=== PATIENT | male | born 1940 | race Caucasian/White ===

== ENCOUNTER → 2016-03-18 | Outpatient (CLI) | payer MEDICARE ==
[~2016-03-18] MED LIST: APIX5TAB PO; ASCO500C PO; AUGM500T7 PO; CALC500T42 PO; LOSA50TA PO; MULT-135 PO; NIFE30TA8 PO; SAW160TA PO; TAMS0.4C4 PO; TAMS5CAP PO; VITACAP7 PO; [UNRECOGNIZED DRUG - CODE] PO; [UNRECOGNIZED DRUG - OTHER] PO
[2016-03-18 10:31] LABS: AUTOMATED NEUTROPHIL # 4.5 TH/MM3 (1.8-7.7); BASOPHIL % 0.5 % (0.0-2.0); EOSINOPHIL # 0.1 TH/MM3 (0-0.4); EOSINOPHIL % 1.4 % (0.0-4.0); HEMATOCRIT 43.7 % (39.0-51.0); HEMO FLAGS DIFF FINAL; LYMPH % 22.8 % (9.0-44.0); LYMPHOCYTE # 1.4 TH/MM3 (1.0-4.8); MEAN CELL VOLUME 93.6 FL (80.0-100.0); MEAN CORPUSCULAR HEMOGLOBIN 30.8 PG (27.0-34.0); MEAN CORPUSCULAR HGB CONC 32.9 % (32.0-36.0); MONO % 4.2 % (0.0-8.0); NEUT % 71.1 % (16.0-70.0); PLATELET COUNT 205 TH/MM3 (150-450); RED BLOOD COUNT 4.67 MIL/MM3 (4.50-5.90); RED CELL DISTRIBUTION WIDTH 13.9 % (11.6-17.2); WHITE BLOOD COUNT 6.3 TH/MM3 (4.0-11.0)
[2016-03-18 12:49] LABS: BACTERIA, URINE MOD /hpf; BLOOD, URINE MOD (NEG); GLUCOSE,URINE NEG (NEG); KETONE, URINE NEG (NEG); MUCUS URINE FEW /lpf (OCC); NITRITE,URINE NEG (NEG); PH, URINE 5.5 (5.0-8.5); TRANSITIONAL EPI CELLS, URINE 1 /hpf; URINE COLOR YELLOW (YELLW/STRAW)
[2016-03-18 12:50] LABS: ANION GAP 5 MEQ/L (5-15); AST (GOT) 17 U/L (15-37); BICARBONATE 27.8 MEQ/L (21.0-32.0); BLOOD UREA NITROGEN 8 MG/DL (7-18); CHLORIDE 108 MEQ/L (98-107); GLOMERULAR FILTRATION RATE 75 ML/MIN (>89); GLUCOSE,FASTING 117 MG/DL (74-99); POTASSIUM 4.2 MEQ/L (3.5-5.1); SODIUM (NA) 141 MEQ/L (136-145)
[2016-03-18 12:53] LABS: ALKALINE PHOSPHATASE 75 U/L (45-117); ALT (GPT) 21 U/L (12-78); HDL CHOLESTEROL 60.3 MG/DL (40.0-60.0); LDL CHOLESTEROL 87 MG/DL (0-99); TOTAL BILIRUBIN ADULT 0.8 MG/DL (0.2-1.0)
== END ==
LOC: OLAB 10:08
PROVIDERS: ATTEND Family Medicine
DX: I48.91 Unspecified atrial fibrillation (principal); E78.5 Hyperlipidemia, unspecified; I10 Essential (primary) hypertension
CPT/HCPCS: 36415; 80053; 80061; 81001; 85025

== ENCOUNTER 2016-04-09 16:47 | Inpatient (IN) | payer MEDICARE, OTHER ==
[~2016-04-09] VITALS: Ht 182.9 cm; Wt 116.2 kg
[2016-04-09 16:47] VITALS: BP 129/58; PULSE 52; RESP 16; TEMP 98.5; O2SAT 99
[~2016-04-09 16:47] MED LIST changes: -TAMS0.4C4 PO
--- NOTE | 2016-04-09 16:52 | PD ---
HPI Chief Complaint: syncope Time Seen by Provider: 16:51 Travel History International Travel<30 days: No Contact w/Intl Traveler<30days: No Traveled to known affect area: No History of Present Illness HPI 75-year-old male brought to the emergency room by EMS from a same day surgery unit after urological procedure done. Patient was in the recovery unit after the surgery and after anesthesia. His was sitting next to him. Patient was awake and talking and asked for a glass of water after which she became unresponsive. His noticed him to slumped over and called for help. As per her his color turned white. The nurse arrive and check for pulse and for 30 seconds unable to feel the pulse. As per the nursing report they did start CPR and called 911. Patient started to wake up and pulse returned. By the time EMS arrived patient was awake, responsive and not complaining of any chest pain or any other symptoms. His said that his symptoms occurred at around 4-4:15 PM. Patient continues to be awake and no other complaints. On the monitor his heart rate fluctuates between high 30s to low 50s. Blood pressure was 196 systolic. Patient takes blood pressure medication and has been taking all his medications like is supposed to. He does not recall the event. Patient has a net c developer in male clinic in [place] as well as here. He has had 3 cardiac ablations done. Patient does not have a pacemaker. [facility] Past Medical History Narrative Medical List of his past medical, social and family history was reviewed from the nursing note. Blood Disorders: No Heart Rhythm Problems: Yes (a-fib) Cancer: Yes (SKIN CANCER (FACE/NECK)) Cardiac Catheterization: Yes Cardiovascular Problems: Yes (HX OF ATRIAL FIBRILLATION WITH ABLATION X 3, ATRIAL FLUTTER) Congestive Heart Failure: No Diabetes: No Diminished Hearing: No Endocrine: No Gastrointestinal Disorders: Yes Genitourinary: No Hepatitis: Yes (HEPATITIS TYPE UNKNOWN 1962) Hiatal Hernia: Yes Hypertension: Yes Immune Disorder: No Musculoskeletal: Yes (ARTHRITIS BOTH KNEES; LEFT CARPAL TUNNEL SYNDROME ) Neurologic: Yes (BILATERAL FEET NEUROPATHY ) Psychiatric: No Reproductive: No Respiratory: No Thyroid Disease: No Ulcer: No Past Surgical History Abdominal Surgery: Yes (APPY 1955) AICD: No Appendectomy: Yes Body Medical Devices: NONE Cardiac Surgery: Yes (HEART CATH, ABLATION X 3,) Ear Surgery: No Endocrine Surgery: No Eye Surgery: No Genitourinary Surgery: No Gynecologic Surgery: No Joint Replacement: No Oral Surgery: No Pacemaker: No Thoracic Surgery: No Other Surgery: Yes (straightening right hammer toe, carpal nathan left toe) Social History Alcohol Use: Yes (6-8 BEERS A DAY) Tobacco Use: No (quit 77) Substance Use: No Allergies-Medications (Allergen,Severity, Reaction): Coded Allergies: Bactrim (Verified Allergy, Severe, SPLOTCHY SKIN, 04/14/16) Enalapril (Verified Allergy, Mild, Cough, 04/14/16) *MDRO Multi-Drug Resistant Organism (Verified Adverse Reaction, Unknown, ) MRSA (wound) - 07/2014 MRSA PCR Screens NEGATIVE - 01/27/16 & 01/30/16 CLEARED PER INFECTION CONTROL Comments List of his allergies reviewed from the nursing note. Reported Meds & Prescriptions Reported Meds & Active Scripts Active Nifedipine ER 24 HR (Nifedipine) 30 Mg Tab 30 Mg PO DAILY Reported Augmentin (Amoxicillin-Clavulanate) 500-125 mg Tab 500 Mg PO BID Losartan (Losartan Potassium) 50 Mg Tab 50 Mg PO DAILY Flomax (Tamsulosin HCl) 0.4 Mg Cap 0.4 Mg PO HS Saw [place] (Saw [place] ([place])) 160 Mg Tab 320 Mg PO DAILY Vitamin C (Ascorbic Acid) 500 Mg Cap 500 Mg PO DAILY Multi Vitamin (Multiple Vitamin) 1 Tab Tab 1 Tab PO DAILY Eliquis (Apixaban) 5 Mg Tab 5 Mg PO BID Calcium 500 Mg Tab 400 Mg PO DAILY B Complex (B-Complex Vitamins) 1 Cap 1 Cap PO DAILY [Fish Oil,Flax,Borage] 800 Mg PO DAILY Narrative Medication List of his home medications reviewed from the nursing note. Review of Systems Except as stated in HPI: all other systems reviewed are Neg Physical Exam Narrative GENERAL: Awake, alert, moderate distress SKIN: Warm and dry. HEAD: Atraumatic. Normocephalic. EYES: Pupils equal and round. No scleral icterus. No injection or drainage. ENT: No nasal bleeding or discharge. Mucous membranes pink and moist. NECK: Trachea midline. No JVD. CARDIOVASCULAR: Regular rate and rhythm. No murmur appreciated. RESPIRATORY: No accessory muscle use. Clear to auscultation. Breath sounds equal bilaterally. GASTROINTESTINAL: Abdomen soft, non-tender, nondistended. Hepatic and splenic margins not palpable. MUSCULOSKELETAL: No obvious deformities. No clubbing. No cyanosis. No edema. NEUROLOGICAL: Awake and alert. No obvious cranial nerve deficits. Motor grossly within normal limits. Normal speech. PSYCHIATRIC: Appropriate mood and affect; insight and judgment normal. Data Data Last Documented VS Orders Electrocardiogram (04/09/16 17:00) Basic Metabolic Panel (Bmp) (04/09/16 17:12) Ckmb (Isoenzyme) Profile (04/09/16 17:12) Complete Blood Count With Diff (04/09/16 17:12) Magnesium (Mg) (04/09/16 17:12) Prothrombin Time / Inr (Pt) (04/09/16 17:12) Act Partial Throm Time (Ptt) (04/09/16 17:12) Troponin I (04/09/16 17:12) Chest, Single Ap (04/09/16 17:12) Ecg Monitoring (04/09/16 17:12) Bilateral Bp Monitoring (04/09/16 17:12) Iv Access Insert/Monitor (04/09/16 17:12) Oximetry (04/09/16 17:12) Oxygen Administration (04/09/16 17:12) Sodium Chloride 0.9% Flush (Ns Flush) (04/09/16 17:15) Sodium Chlorid 0.9% 500 Ml Inj (Ns 500 M (04/09/16 17:15) ^ Consent (04/09/16 17:46) Admit Order (Ed Use Only) (04/09/16 18:20) Labs MDM Medical Decision Making Medical Screen Exam Complete: Yes Emergency Medical Condition: Yes Medical Record Reviewed: Yes Interpretation(s) Twelve-lead EKG was reviewed by me. Normal sinus rhythm, bradycardia, normal axis, right bundle branch block, nonspecific ST-T wave changes. Heart rate of 56 bpm. Differential Diagnosis Symptomatic bradycardia, electrolyte abnormalities, post anesthesia complication Narrative Course 5:23 PM I tried talking to patient's net c developer Dr. Martinez. However he was out of town and Dr. Reyes who was covering for him called back. He wanted the patient to be admitted to hospitalist and said that his net c developer will consult on him tomorrow. He did not have anything further to add. Patient is getting blood work done. I have put him on pacer pads just in case. His heart rate keeps fluctuating and has gone as low as 39 bpm. He is not on any medications that could have this effect on the heart rate as far as I know. I' m wondering if it has to do with the anesthesia. Patient has had multiple cardiac ablations in the past and could be from that. He will require admission. 6:05 PM was down here to see the patient. He looked at the 12-lead EKGs and recommends a pacemaker for this patient. He wants the patient to be admitted to the hospitalist. CBC report is back and within normal limit. Awaiting for the chemistry. Critical Care Narrative Aggregate critical care time was 30 minutes. Time to perform other separately billable procedures was not included in the critical care time. My time did not include minutes spent treating any other patients simultaneously or on activities that did not directly contribute to the patient's treatment. The services I provided to this patient were to treat and/or prevent clinically significant deterioration that could result in: Symptomatic bradycardia, closer cardiac monitoring I provided critical care services requiring my management, as noted below: Chart data review, documentation time, medication orders and management, vital sign assessments/reviewing monitor data, ordering and reviewing lab tests, ordering and interpreting/reviewing x-rays and diagnostic studies, care of the patient and discussion of the patient with the admitting physicians. Procedures EKG Prior to Arrival: No Physician Communication Physician Communication Dr. Reyes, Dr. Serrano Diagnosis Primary Impression: Syncope Qualified Code: R55 - Syncope, unspecified syncope type Additional Impression: Symptomatic bradycardia Admitting Information Admitting Physician Requests: Herbert Ontiveros MD Apr 09, 2016 16:52 [facility] Medical Decision Making Medical Screen Exam Complete: Yes Emergency Medical Condition: Yes Medical Record Reviewed: Yes Interpretation(s) Twelve-lead EKG was reviewed by me. Normal sinus rhythm, bradycardia, normal axis, right bundle branch block, nonspecific ST-T wave changes. Heart rate of 56 bpm. Differential Diagnosis Symptomatic bradycardia, electrolyte abnormalities, post anesthesia complication Narrative Course 5:23 PM I tried talking to patient's net c developer Dr. Martinez. However he was out of town and Dr. Reyes who was covering for him to call back. He wanted the patient to be admitted to hospitalist and said that his net c developer will consult on him tomorrow. He did not have anything further to add. Patient is getting blood work done. I have put him on pacer pads. His heart rate keeps fluctuating and has gone as low as 39 bpm. He is not on any medications that could have this effect on the heart rate as far as I know. I'm wondering if it has to do with the anesthesia. Patient has had multiple ablations and could be from that. He will require admission. 6:05 PM was down here to see the patient. He looked at the 12-lead EKGs and recommends a pacemaker for this patient. He wants the patient to be admitted to the hospitalist. CBC report is back and within normal limit. Awaiting for the chemistry. Critical Care Narrative Aggregate critical care time was 30 minutes. Time to perform other separately billable procedures was not included in the critical care time. My time did not include minutes spent treating any other patients simultaneously or on activities that did not directly contribute to the patient's treatment. The services I provided to this patient were to treat and/or prevent clinically significant deterioration that could result in: Symptomatic bradycardia, closer cardiac monitoring I provided critical care services requiring my management, as noted below: Chart data review, documentation time, medication orders and management, vital sign assessments/reviewing monitor data, ordering and reviewing lab tests, ordering and interpreting/reviewing x-rays and diagnostic studies, care of the patient and discussion of the patient with the admitting physicians. Procedures EKG Prior to Arrival: No Physician Communication Physician Communication Dr. Reyes, Dr. Serrano Diagnosis Primary Impression: Syncope Qualified Code: R55 - Syncope, unspecified syncope type Additional Impression: Symptomatic bradycardia Admitting Information Admitting Physician Requests: Herbert Ontiveros MD Apr 09, 2016 16:52
[2016-04-09] MEDS ORDERED: SODIUM CHLORID 0.9% 500 ML INJ 500 ML IV ONE (17:15)
[2016-04-09] MEDS ORDERED: SODIUM CHLORIDE 0.9% FLUSH 5 ML FLUSH IVF PRN (17:15)
[2016-04-09 18:01] LABS: AUTOMATED NEUTROPHIL # 5.2 TH/MM3 (1.8-7.7); BASOPHIL % 0.4 % (0.0-2.0); EOSINOPHIL % 0.5 % (0.0-4.0); HEMATOCRIT 41.7 % (39.0-51.0); HEMO FLAGS DIFF FINAL; LYMPH % 17.1 % (9.0-44.0); LYMPHOCYTE # 1.2 TH/MM3 (1.0-4.8); MEAN CELL VOLUME 94.2 FL (80.0-100.0); MEAN CORPUSCULAR HEMOGLOBIN 31.7 PG (27.0-34.0); MEAN CORPUSCULAR HGB CONC 33.6 % (32.0-36.0); MONO % 7.3 % (0.0-8.0); NEUT % 74.7 % (16.0-70.0); PLATELET COUNT 168 TH/MM3 (150-450); RED BLOOD COUNT 4.43 MIL/MM3 (4.50-5.90); RED CELL DISTRIBUTION WIDTH 14.5 % (11.6-17.2); WHITE BLOOD COUNT 6.9 TH/MM3 (4.0-11.0)
--- NOTE | 2016-04-09 18:03 | RADRPT ---
EXAM DATE/TIME: 04/09/2016 17:29 [facility] COMPARISON: CHEST SINGLE AP, February 01, 2016, 15:54. INDICATIONS : Patient had prostate surgery this afternoon and passed out while in recovery. MEDICAL HISTORY : Hypertension. Hepatitis. Peripheral neuropathy. SURGICAL HISTORY : Appendectomy. Bilateral hallux amputation, laminectomy and bone spur ENCOUNTER: Initial ACUITY: 1 day PAIN SCORE: 0/10 LOCATION: chest FINDINGS: A single view of the chest demonstrates the lungs to be symmetrically aerated without evidence of mas s, infiltrate or effusion. No evidence pneumothorax. The cardiomediastinal contours are unremarkabl e. Osseous structures are intact. CONCLUSION: The lungs are clear. Beto Zambrano MD on April 09, 2016 at 18:01 Board Certified Radiologist. This report was verified electronically.
--- NOTE | 2016-04-09 18:12 | MB ---
cc: ЮЛИЯ ALFARO DATE OF CONSULTATION: 04/09/2016. HISTORY OF PRESENT ILLNESS: Mr. Zapata is a 75-year-old white male who is a patient of Dr. Martinez with a history of atrial flutter and fibrillation with multiple ablations. He underwent urologic procedure today. Afterwards he had an episode of severe bradycardia and became unresponsive. He was severely bradycardic. The patient was brought to the emergency room. His heart rate was intermittently in the 30s. He has not had any chest pain or shortness of breath. He has no recollection of this event. PAST MEDICAL HISTORY: His past medical history is positive for: 1. Atrial fibrillation. 2. Atrial flutter. 3. Ablation of flutter in 2007. 4. Ablation of fibrillation in 2009 and 2015 at [place]. 5. History of coronary artery disease. 6. Hypertension. 7. Dyslipidemia. 8. Hyperglycemia. 9. Peripheral neuropathy. 10. Osteoarthritis. 11. Erectile dysfunction. 12. Hiatal hernia. 13. Cardiac catheterization in 2007 showed ejection fraction of 60%, mild proximal left anterior descending disease. 14. History of toe amputation. 15. Laminectomy. 16. Appendectomy. 17. Bilateral knee arthroscopies. 18. Cholecystectomy. MEDICATIONS: 1. Eliquis. The patient has been off Eliquis for the last week for the urologic procedure. 2. Losartan. 4. Vitamin B. 5. Calcium. 6. Glucosamine. 7. Saw [place]. 8. A multivitamin. ALLERGIES: 1. BACTRIM. 2. ENALAPRIL. SOCIAL HISTORY: The patient drinks beer daily. He does not smoke. FAMILY HISTORY: Family history is negative for heart disease. REVIEW OF SYSTEMS: The review of systems is otherwise negative. PHYSICAL EXAMINATION: VITAL SIGNS: Blood pressure 130/80, pulse 60. HEAD, EYES, EARS, NOSE, THROAT: Negative. NECK: 2+ carotid upstrokes, no bruits. LUNGS: Clear. HEART: Regular rate and rhythm with no murmurs, rubs or gallops. ABDOMEN: Abdomen soft. No bruits. EXTREMITIES: Without edema. 2+ distal pulses. NEUROLOGIC: Grossly nonfocal. EKGS: EKG was reviewed and showed sinus rhythm, first-degree AV block, right bundle-branch block. Telemetry shows intermediate episodes of severe sinus bradycardia consistent with sick sinus syndrome. DIAGNOSIS: 1. Syncope. 2. Sick sinus syndrome with severe symptomatic bradycardia. 3. Paroxysmal atrial fibrillation / flutter, status post ablation. 4. Mild nonobstructive coronary artery disease. 5. Hypertension. 6. Dyslipidemia. DISPOSITION: Mr. Zapata was found to have evidence of sick sinus syndrome and severe symptomatic bradycardia. He will undergo the placement of a dual-chamber permanent pacemaker tomorrow. He and his understand the risks and benefits and they wish to proceed. MD NEERU Eli/AC /5:44 PM /5:56 PM MTDD
[2016-04-09 18:13] LABS: APTT (PATIENT) 26.3 SEC (24.3-30.1); PROTHROMBIN TIME - PATIENT 10.8 SEC (9.8-11.6)
[2016-04-09 18:22] LABS: ANION GAP 8 MEQ/L (5-15); BICARBONATE 27.9 MEQ/L (21.0-32.0); BLOOD UREA NITROGEN 6 MG/DL (7-18); CHLORIDE 105 MEQ/L (98-107); GLOMERULAR FILTRATION RATE 94 ML/MIN (>89); POTASSIUM 3.7 MEQ/L (3.5-5.1); SODIUM (NA) 141 MEQ/L (136-145)
[2016-04-09 18:30] VITALS: O2SAT 100
[2016-04-09 18:30] LABS: CREATINE KINASE 46 U/L (39-308)
[2016-04-09] MEDS ORDERED: SODIUM CHLORIDE 0.9% FLUSH 5 ML FLUSH FLUSH PRN (18:30)
[2016-04-09] MEDS ORDERED: ONDANSETRON HCL 4 MG/2 ML VIAL IVP PRN (18:30)
[2016-04-09] MEDS ORDERED: ACETAMINOPHEN 325 MG TAB PO PRN (18:30)
[2016-04-09] MEDS ORDERED: NALOXONE HCL 0.4 MG/ML AMP IV PRN (18:30)
--- NOTE | 2016-04-09 18:36 | HHI.HP ---
HPI Service [facility] Primary Care Physician Raghav Courtney M.D. Admission Diagnosis syncope, symptomatic bradycardia Diagnoses: Chief Complaint: syncope Travel History International Travel<30 Days: No Contact w/Intl Traveler <30 Da: No Traveled to Known Affected Are: No History of Present Illness This is a 75-year-old male with significant past medical history of peripheral neuropathy I status post I&D of left foot abscess, hypertension, hyperlipidemia. History of A. fib and a flutter with multiple ablations. According to the patient, he developed some problems with nocturia and was evaluated by urologist. Today he was at the [facility] after having undergone a Urolift procedure. While he was in recovery, patient was awake and talking to . He was having a sip of water when he suddenly he felt flushed and lightheaded, he became unresponsive. His noticed that he slumped over and call for help. When nursing staff arrived, patient was noted with a pulse rate of 30. Per ER report, CPR was initiated and 911 was called. Patient did wake up and pulse returned. By the time EMS arrived, patient was awake and responsive. He did not complain of any pain, no palpitations, shortness of breath. Blood pressure was 196 systolic. Indicated that he did take his blood pressure medications during the morning. Patient follows up with Dr. Juan lindquist as well as painter helper spray at [facility]. Prior to having procedure, patient had been in his usual state of health. He denies any recent fever, chills. He has been having wound care therapy at Dr. Wakefield' s office to a left foot wound that is healing well. In the emergency room, patient was evaluated. He was found hemodynamically stable, heart rate was fluctuating as low as 39. Cardiology was consulted, patient was seen by Dr. Serrano who plans to do a pacemaker tomorrow. Laboratory workup is essentially unremarkable. Patient is now awake alert oriented 3. He has no complaints. Patient has had a recent UTI, has had a chronic indwelling catheter since January 2016 for urinary retention. Is currently on antibiotics. Denies any fever or chills. Catheter was changed today. Patient is on Eliquis which he stopped taking for procedure. Patient is admitted for further evaluation and treatment. Review of Systems Constitutional: COMPLAINS OF: Dizziness, DENIES: Diaphoretic episodes, Fatigue , Fever, Weight gain, Weight loss, Chills, Change in appetite, Night Sweats Endocrine: DENIES: Heat/cold intolerance, Polydipsia, Polyuria, Polyphagia Eyes: DENIES: Blurred vision, Diplopia, Eye inflammation, Eye pain, Vision loss , Photosensitivity, Double Vision Ears, nose, mouth, throat: DENIES: Tinnitus, Hearing loss, Vertigo, Nasal discharge, Oral lesions, Throat pain, Hoarseness, Ear Pain, Running Nose, Epistaxis, Sinus Pain, Toothache, Odynophagia Respiratory: DENIES: Apneas, Cough, Snoring, Wheezing, Hemoptysis, Sputum production, Shortness of breath Cardiovascular: COMPLAINS OF: Syncope, DENIES: Chest pain, Palpitations, Dyspnea on Exertion, PND, Lower Extremity Edema, Orthopnea, Claudication Gastrointestinal: DENIES: Abdominal pain, Black stools, Bloody stools, Constipation, Diarrhea, Nausea, Vomiting, Difficulty Swallowing, Anorexia Genitourinary: DENIES: Sexual dysfunction, Urinary frequency, Urinary incontinence, Urgency, Hematuria, Dysuria, Nocturia, Penile Discharge, Testicular Pain, Testicular Swelling Musculoskeletal: DENIES: Joint pain, Muscle aches, Stiffness, Joint Swelling, Back pain, Neck pain Integumentary: DENIES: Abnormal pigmentation, Nail changes, Pruritus, Rash Hematologic/lymphatic: DENIES: Bruising, Lymphadenopathy Immunologic/allergic: DENIES: Eczema, Urticaria Neurologic: DENIES: Abnormal gait, Headache, Localized weakness, Paresthesias, Seizures, Speech Problems, Tremor, Poor Balance Psychiatric: DENIES: Anxiety, Confusion, Mood changes, Depression, Hallucinations, Agitation, Suicidal Ideation, Homicidal Ideation, Delusions Past Family Social History Past Medical History Peripheral neuropathy, affecting both lower extremities Atrial flutter/fibrillation Hyperlipidemia Hypertension Snoring hiatal hernia Appendicitis Urinary infection Mumps Kidney stones Osteoarthritis , back pain Hepatitis A Excessive alcohol recent admit 2015 for sepsis and left foot infection. Urinary retention, had a Petersen catheter inserted in January 2016 which is still hasn't place, was changed today 04/09/2016 Past Surgical History Bilateral toe amputation 1 and 2 on the left, 1 and 2 on the right L4-L5 laminectomy Left heel spur Bilateral hammertoe laminectomy, appendectomy Cardiac ablation x3 I/D left foot abscess Jan 26, 2016 Reported Medications Reported Meds & Active Scripts Active Nifedipine ER 24 HR (Nifedipine) 30 Mg Tab 30 Mg PO DAILY Reported Augmentin (Amoxicillin-Clavulanate) 500-125 mg Tab 500 Mg PO BID Losartan (Losartan Potassium) 50 Mg Tab 50 Mg PO DAILY Flomax (Tamsulosin HCl) 0.4 Mg Cap 0.4 Mg PO HS Saw Nelson (Saw Nelson (Serenoa Repens)) 160 Mg Tab 320 Mg PO DAILY Vitamin C (Ascorbic Acid) 500 Mg Cap 500 Mg PO DAILY Multi Vitamin (Multiple Vitamin) 1 Tab Tab 1 Tab PO DAILY Gugulipid (Guggulipid) 500 Mg Cap 1,000 Mg PO BID Eliquis (Apixaban) 5 Mg Tab 5 Mg PO BID Calcium 500 Mg Tab 400 Mg PO DAILY B Complex (B-Complex Vitamins) 1 Cap 1 Cap PO DAILY [Fish Oil,Flax,Borage] 800 Mg PO DAILY Allergies: Coded Allergies: Bactrim (Verified Allergy, Severe, SPLOTCHY SKIN, 04/07/16) Enalapril (Verified Allergy, Mild, Cough, 04/07/16) *MDRO Multi-Drug Resistant Organism (Verified Adverse Reaction, Unknown, ) 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 MRSA PCR Screen NEGATIVE 01/27/16 & 01/30/16 Cleared per Infection Control Active Ordered Medications Inpatient Medications Acetaminophen (Tylenol) 650 mg Q4H PRN PO TEMP > 100.4; Start 04/09/16 at 18:30 ; Status UNV Heparin Sodium (Porcine) (Heparin Inj) 5,000 units Q12H SQ ; Start 04/09/16 at 18:30; Status UNV IV Flush (NS Flush) 2 ml BID FLUSH ; Start 04/09/16 at 21:00; Status UNV IV Flush 2 ml 2 ml UNSCH PRN IVF FLUSH AFTER USING IV ACCESS; Start 04/09/16 at 17:15; Stop 04/09/16 at 18:32; Status DC Naloxone HCl (Narcan Inj) 0.4 mg UNSCH PRN IV SEE LABEL COMMENTS; Start at 18:30; Status UNV Ondansetron HCl (Zofran Inj) 4 mg Q6H PRN IVP NAUSEA OR VOMITING; Start at 18:30; Status UNV Sodium Chloride (NS 500 ml Inj) 500 ml @ 500 mls/hr ONCE ONCE IV Last administered on 04/09/16t 18:24; Start 04/09/16 at 17:15; Stop 04/09/16 at 18:14 ; Status DC Family History Reviewed but noncontributory Social History Former smoker, drinks 6-8 beers a day, no illicit drug use. Lives with Physical Exam Vital Signs Vital Signs Date Time Temp Pulse Resp B/P Pulse Ox O2 Delivery O2 Flow Rate FiO2 04/09/16 18:30 100 Nasal Cannula 2.00 04/09/16 16:47 98.5 52 16 129/58 99 Physical Exam GENERAL: This is a well-nourished, well-developed patient, in no apparent distress. SKIN: No rashes, ecchymoses or lesions. Cool and dry. HEAD: Atraumatic. Normocephalic. No temporal or scalp tenderness. EYES: Pupils equal round and reactive. Extraocular motions intact. No scleral icterus. No injection or drainage. ENT: Nose without bleeding, purulent drainage or septal hematoma. Throat without erythema, tonsillar hypertrophy or exudate. Uvula midline. Airway patent. NECK: Trachea midline. No JVD or lymphadenopathy. Supple, nontender, no meningeal signs. CARDIOVASCULAR: Regular rate and rhythm without murmurs, gallops, or rubs. RESPIRATORY: Clear to auscultation. Breath sounds equal bilaterally. No wheezes , rales, or rhonchi. GASTROINTESTINAL: Abdomen soft, non-tender, nondistended. No hepato-splenomegaly , or palpable masses. No guarding. MUSCULOSKELETAL: Status post bilateral toe amputations, 1 and 2 on the left, 1 and 2 on the right. Has a dressing to the left foot that is dry and intact. Pedal pulses +1 bilaterally. NEUROLOGICAL: Awake, alert oriented 3. Grossly normal. Laboratory Laboratory Tests Test 04/09/16 17:15 White Blood Count 6.9 Red Blood Count 4.43 Hemoglobin 14.0 Hematocrit 41.7 Mean Corpuscular Volume 94.2 Mean Corpuscular Hemoglobin 31.7 Mean Corpuscular Hemoglobin 33.6 Concent Red Cell Distribution Width 14.5 Platelet Count 168 Mean Platelet Volume 8.0 Neutrophils (%) (Auto) 74.7 Lymphocytes (%) (Auto) 17.1 Monocytes (%) (Auto) 7.3 Eosinophils (%) (Auto) 0.5 Basophils (%) (Auto) 0.4 Neutrophils # (Auto) 5.2 Lymphocytes # (Auto) 1.2 Monocytes # (Auto) 0.5 Eosinophils # (Auto) 0.0 Basophils # (Auto) 0.0 CBC Comment DIFF FINAL Differential Comment Prothrombin Time 10.8 Prothromb Time International 1.0 Ratio Activated Partial 26.3 Thromboplast Time Sodium Level 141 Potassium Level 3.7 Chloride Level 105 Carbon Dioxide Level 27.9 Anion Gap 8 Blood Urea Nitrogen 6 Creatinine 0.80 Estimat Glomerular Filtration 94 Rate Random Glucose 148 Calcium Level 8.2 Magnesium Level 2.0 Total Creatine Kinase 46 Troponin I LESS THAN 0.02 Result Diagram: 04/09/16171404/09/161714 Imaging Last Impressions Chest X-Ray 04/09/161711 Signed Impressions: Service Date/Time: March 17:29 - CONCLUSION: The lungs are clear. Beto Zambrano MD Assessment and Plan Problem List: (1) Syncope (2) Symptomatic bradycardia (3) Atrial fibrillation and flutter (4) Hx of prior ablation treatment (5) Neuropathy (6) HTN (hypertension) (7) Chronic ulcer of left foot Plan: Recent incision and drainage (8) HX AMPUTATION TOES RIGHT AND LEFT FOOT (9) Chronic indwelling Petersen catheter (10) UTI (urinary tract infection) (11) Urinary retention Assessment and Plan Admit to Dr. Cordova 75-year-old male with history of atrial flutter, A. fib with multiple ablations. Patient admitted after having symptomatic bradycardia with subsequent syncopal episode after undergoing urological procedure. Sick sinus syndrome with symptomatic bradycardia and syncope Continuous cardiac telemetry External pacemaker pads -Continue with IV fluids Cardiology has been consulted for evaluation, patient has been seen by Dr. Serrano, plans a pacemaker tomorrow We will keep nothing by mouth after midnight Hold Eliquis Peripheral neuropathy, history of amputation of toes of left and right foot. Has a chronic ulcer to the left foot that is healing, undergoing wound care -Wound care done weekly per Dr. Wakefield, done on 04/08/2016 Orders given not to change dressing -Patient to wear ortho shoe at all times Hypertension, stable Continue home medication Urinary retention, status post Urolift procedure. Has chronic indwelling catheter since January, changed today. Currently been treated for UTI -Continue with Petersen catheter Monitor urine output Continue with oral antibiotics Daily alcohol use -Counseled about alcohol use Monitor for withdrawal symptoms Home medications reviewed, initiated as indicated SCDs for DVT prophylaxis Plan of care has been discussed with the patient and his , their questions answered in detail. Plan of care discussed with attending and registered nurse. Further management of the patient will be dependent on the hospital course This patient was seen by myself and Dr. Cordova, this H&P is written on his behalf Physician Certification 2 Midnight Certification Type: Admission for Inpatient Services Order for Inpatient Services The services are ordered in accordance with Medicare regulations or non- Medicare payer requirements, as applicable. In the case of services not specified as inpatient-only, they are appropriately provided as inpatient services in accordance with the 2-midnight benchmark. Estimated LOS (days): 2 2 days is the estimated time the patient will need to remain in the hospital, assuming treatment plan goals are met and no additional complications. Post-Hospital Plan: Home Health Problem Qualifiers (1) Syncope: Qualified Code: R55 - Syncope, unspecified syncope type (2) HTN (hypertension): Qualified Code: I10 - Essential hypertension (3) Chronic ulcer of left foot: Qualified Code: L97.529 - Chronic ulcer of left foot, with unspecified severity (4) UTI (urinary tract infection): Qualified Code: T83.511S - Urinary tract infection associated with indwelling urethral catheter, sequela Flora Shrestha Apr 09, 2016 18:36
[2016-04-09 19:10] VITALS: BP 159/74; PULSE 69; RESP 18; O2SAT 99
[2016-04-09] MEDS: SODIUM CHLORIDE 0.9% FLUSH 5 ML FLUSH FLUSH SCH (19:51)
[2016-04-09] MEDS: HEPARIN SODIUM - SQ 10,000 UNITS/ML VIAL SQ SCH (20:48)
[2016-04-09] MEDS: AMOXICILLIN/CLAVULANATE K 500 MG TAB PO SCH (20:48)
[2016-04-09] MEDS: TAMSULOSIN HCL 0.4 MG CAP PO SCH (20:48)
[2016-04-09 21:36] VITALS: O2SAT 95
[2016-04-09 21:49] VITALS: BP 156/73; PULSE 56; RESP 18; O2SAT 99
[2016-04-09 23:10] VITALS: BP 154/79; PULSE 62; PULSE 63; RESP 20; TEMP 98; O2SAT 99
[2016-04-10] VITALS (26 sets, daily range): BP systolic 125–159; BP diastolic 60–85; PULSE 62–122; RESP 18–20; TEMP 98–99; O2SAT 94–99
[2016-04-10 07:05] LABS: BASOPHIL % 0.3 % (0.0-2.0); EOSINOPHIL # 0.1 TH/MM3 (0-0.4); EOSINOPHIL % 1.1 % (0.0-4.0); HEMATOCRIT 41.1 % (39.0-51.0); HEMO FLAGS DIFF FINAL; LYMPH % 21.7 % (9.0-44.0); LYMPHOCYTE # 1.6 TH/MM3 (1.0-4.8); MEAN CELL VOLUME 94.3 FL (80.0-100.0); MEAN CORPUSCULAR HEMOGLOBIN 32.4 PG (27.0-34.0); MEAN CORPUSCULAR HGB CONC 34.4 % (32.0-36.0); MONO % 7.5 % (0.0-8.0); NEUT % 69.4 % (16.0-70.0); PLATELET COUNT 160 TH/MM3 (150-450); RED BLOOD COUNT 4.35 MIL/MM3 (4.50-5.90); RED CELL DISTRIBUTION WIDTH 14.8 % (11.6-17.2); WHITE BLOOD COUNT 7.2 TH/MM3 (4.0-11.0)
[2016-04-10 07:47] LABS: ANION GAP 8 MEQ/L (5-15); BICARBONATE 28.8 MEQ/L (21.0-32.0); BLOOD UREA NITROGEN 5 MG/DL (7-18); CHLORIDE 106 MEQ/L (98-107); GLOMERULAR FILTRATION RATE 108 ML/MIN (>89); POTASSIUM 3.9 MEQ/L (3.5-5.1); SODIUM (NA) 143 MEQ/L (136-145)
[2016-04-10] MEDS: ASCORBIC ACID 500 MG TAB PO SCH (07:58)
[2016-04-10] MEDS: HEPARIN SODIUM - SQ 10,000 UNITS/ML VIAL SQ SCH ×2 (07:58→20:21)
[2016-04-10] MEDS: SODIUM CHLORIDE 0.9% FLUSH 5 ML FLUSH FLUSH SCH (07:58)
[2016-04-10] MEDS: AMOXICILLIN/CLAVULANATE K 500 MG TAB PO SCH ×2 (07:58→20:20)
[2016-04-10] MEDS: LOSARTAN 50 MG TAB PO SCH (07:58)
[2016-04-10] MEDS: NIFEdipine 30 MG SUSTAINED RELEASE TAB PO SCH (07:58)
[2016-04-10] MEDS ORDERED: VANCOMYCIN 500 MG VIAL ONE (08:37)
[2016-04-10] MEDS ORDERED: LIDOCAINE HCL 2% 50 ML VIAL ONE (08:38)
[2016-04-10] MEDS ORDERED: VANCOMYCIN HCL 1000 MG VIAL ONE (08:38)
[2016-04-10] MEDS ORDERED: SODIUM CHLOR 0.9% 250 ML INJ 250 ML ONE (08:38)
[2016-04-10] MEDS ORDERED: ceFAZolin INJ 1,000 MG VIAL ONE (08:38)
[2016-04-10] MEDS ORDERED: PROPOFOL 200 MG/20 ML AMP IV ONE (09:13)
[2016-04-10] MEDS ORDERED: IOHEXOL 350 MG/ML 50 ML BTL (for EPS) OTHER ONE (09:13)
--- NOTE | 2016-04-10 09:36 | HHI.PR ---
Subjective Interval History awake alert and oriented s/p PM placement earlier this am no chest pain no sob no complaints at bedside Vitals/Results Vital Signs Vital Signs Date Time Temp Pulse Resp B/P Pulse Ox O2 Delivery O2 Flow Rate FiO2 04/10/16 07:30 98.2 73 20 158/82 97 04/10/16 05:20 98.2 66 20 155/80 99 04/10/16 04:00 70 04/10/16 03:00 64 04/10/16 02:00 76 04/10/16 01:00 70 04/10/16 00:00 62 04/09/16 23:10 98.0 63 20 154/79 99 04/09/16 23:10 62 04/09/16 21:49 56 18 156/73 99 04/09/16 21:36 95 Nasal Cannula 2.00 04/09/16 19:10 69 18 159/74 99 04/09/16 18:30 100 Nasal Cannula 2.00 04/09/16 16:47 98.5 52 16 129/58 99 CBC/BMP: 04/10/16 0455 04/10/16 0455 Lab Results Laboratory Tests Test 04/09/16 04/09/16 04/10/16 17:15 23:29 04:55 White Blood Count 6.9 TH/MM3 7.2 TH/MM3 Red Blood Count 4.43 MIL/MM3 4.35 MIL/MM3 Hemoglobin 14.0 GM/DL 14.1 GM/DL Hematocrit 41.7 % 41.1 % Mean Corpuscular Volume 94.2 FL 94.3 FL Mean Corpuscular Hemoglobin 31.7 PG 32.4 PG Mean Corpuscular Hemoglobin 33.6 % 34.4 % Concent Red Cell Distribution Width 14.5 % 14.8 % Platelet Count 168 TH/MM3 160 TH/MM3 Mean Platelet Volume 8.0 FL 8.4 FL Neutrophils (%) (Auto) 74.7 % 69.4 % Lymphocytes (%) (Auto) 17.1 % 21.7 % Monocytes (%) (Auto) 7.3 % 7.5 % Eosinophils (%) (Auto) 0.5 % 1.1 % Basophils (%) (Auto) 0.4 % 0.3 % Neutrophils # (Auto) 5.2 TH/MM3 5.0 TH/MM3 Lymphocytes # (Auto) 1.2 TH/MM3 1.6 TH/MM3 Monocytes # (Auto) 0.5 TH/MM3 0.5 TH/MM3 Eosinophils # (Auto) 0.0 TH/MM3 0.1 TH/MM3 Basophils # (Auto) 0.0 TH/MM3 0.0 TH/MM3 CBC Comment DIFF FINAL DIFF FINAL Differential Comment Prothrombin Time 10.8 SEC Prothromb Time International 1.0 RATIO Ratio Activated Partial 26.3 SEC Thromboplast Time Sodium Level 141 MEQ/L 143 MEQ/L Potassium Level 3.7 MEQ/L 3.9 MEQ/L Chloride Level 105 MEQ/L 106 MEQ/L Carbon Dioxide Level 27.9 MEQ/L 28.8 MEQ/L Anion Gap 8 MEQ/L 8 MEQ/L Blood Urea Nitrogen 6 MG/DL 5 MG/DL Creatinine 0.80 MG/DL 0.71 MG/DL Estimat Glomerular Filtration 94 ML/MIN 108 ML/MIN Rate Random Glucose 148 MG/DL 81 MG/DL Calcium Level 8.2 MG/DL 8.3 MG/DL Magnesium Level 2.0 MG/DL Total Creatine Kinase 46 U/L Troponin I LESS THAN 0.02 LESS THAN 0.02 LESS THAN 0.02 NG/ML NG/ML NG/ML Physical Exam General General Appearance: Well Developed, Well Nourished, No Acute Distress, Comfortable Eyes Eye Exam: Pupils Equal, Pupils Reactive Throat Throat Exam: Oral Mucosa [place] & Moist Neck Neck Exam: Neck Supple, Trachea Midline Pulmonary Resp Exam: Clear Bilaterally, Breath Sounds Equal, No Distress Cardiology CV Exam: Regular, Normal Sinus Rhythm CV Remarks dressing on left upper chest Gastrointestinal/Abdomen GI Exam: Soft, Non-Tender, Bowel Sounds Present Genitourinary Exam: Clear Urine Remarks hopkins catheter Musculoskeletal MS Exam: Joints Intact, Good Strength MS Remarks left foot wound Integumentary Skin Exam: Clear, Warm, Dry, Intact Extremeties Extremities Exam: No Edema Neurologic Neuro Exam: Alert, Awake, Oriented, Speech Clear, Moving All Extremities Psychiatric Psych Exam: Appropriate Responses Assessment/Plan Assessment/Plan Assessment and Plan Assessment and Plan Problem List: (1) Syncope (2) Symptomatic bradycardia (3) Atrial fibrillation and flutter (4) Hx of prior ablation treatment (5) Neuropathy (6) HTN (hypertension) (7) Chronic ulcer of left foot Plan: Recent incision and drainage (8) HX AMPUTATION TOES RIGHT AND LEFT FOOT (9) Chronic indwelling Hopkins catheter (10) UTI (urinary tract infection) (11) Urinary retention Assessment and Plan 75-year-old male with history of atrial flutter, A. fib with multiple ablations. Patient admitted after having symptomatic bradycardia with subsequent syncopal episode after undergoing urological procedure. Sick sinus syndrome with symptomatic bradycardia and syncope Continuous cardiac telemetry s/p PPM placement POD 0 -Continue with IV fluids Cardiology input appreciated bed rest for 4 hours Hold Eliquis, possible restart when cleared by cardiology and Urology Peripheral neuropathy, history of amputation of toes of left and right foot. Has a chronic ulcer to the left foot that is healing, undergoing wound care -Wound care done weekly per Dr. Wakefield, done on 04/08/2016 Orders given not to change dressing -Patient to wear ortho shoe at all times Hypertension, stable Continue home medication Urinary retention, status post Urolift procedure. Has chronic indwelling catheter since January, changed today. Currently been treated for UTI -Continue with Hopkins catheter Monitor urine output Continue with oral antibiotics Daily alcohol use -Counseled about alcohol use Monitor for withdrawal symptoms Home medications reviewed, initiated as indicated SCDs for DVT prophylaxis discussed with patient and at bedside anticipate discharge in Gina Varma MD Apr 10, 2016 09:36
[2016-04-10] MEDS ORDERED: SODIUM CHLORIDE 0.9% FLUSH 5 ML FLUSH IVF PRN (10:00)
--- NOTE | 2016-04-10 10:06 | HHI.PR ---
Immediate Post Op Note Procedure Date: Apr 10, 2016 Pre Op Diagnosis: (1) Symptomatic bradycardia Post Op Diagnosis: (1) Symptomatic bradycardia Surgeon: Veronica Serrano MD, F[place] Park Keeper(s): Jessica Procedure: DDD pacer Findings: SSS Complications: none Specimen(s) removed: none Estimated blood loss: below 10 cc Patient to: Other Patient Condition: Good Veronica Serrano MD Apr 10, 2016 10:06
--- NOTE | 2016-04-10 11:43 | RADRPT ---
EXAM DATE/TIME: 04/10/2016 11:13 [place] COMPARISON: CHEST SINGLE AP, April 09, 2016, 17:29. INDICATIONS : Evaluate for Pneumothorax. MEDICAL HISTORY : Hypertension. Hepatitis. Peripheral neuropathy. SURGICAL HISTORY : Appendectomy. Bilateral hallux amputation, laminectomy and bone spur from heel removed. ENCOUNTER: Initial ACUITY: 1 day PAIN SCORE: 0/10 LOCATION: Bilateral chest FINDINGS: A single view of the chest demonstrates the lungs to be symmetrically aerated without evidence of mas s, infiltrate or effusion. The cardiomediastinal contours are unremarkable. Pacemaker line the left chest. Osseous structures are intact. CONCLUSION: No acute disease. No significant change has occurred. Prashant Dozier MD on April 10, 2016 at 11:41 Board Certified Radiologist. This report was verified electronically.
[2016-04-10] MEDS: ceFAZolin 2 GM PREMIX 50 ML IV SCH ×2 (13:00→20:20)
--- NOTE | 2016-04-10 17:02 | EKG ---
Date Performed: 04/09/2016 Time Performed: 17:04:36 PTAGE: 75 years EKG: SINUS BRADYCARDIA RIGHT BUNDLE BRANCH BLOCK ABNORMAL ECG PREVIOUS TRACING : 01/24/2016 18.19 Compared to previous tracing, the patient is now bradycardi c. DOCTOR: Emma Quintanilla Interpretating Date/Time 04/10/2016 17:01:42
--- NOTE | 2016-04-10 17:04 | EKG ---
Date Performed: 04/09/2016 Time Performed: 17:10:48 PTAGE: 75 years EKG: SINUS BRADYCARDIA WITH FIRST DEGREE AV BLOCK WITH FREQUENT SUPRAVENTRICULAR PREMATURE COMPL EXES RIGHT BUNDLE BRANCH BLOCK ABNORMAL ECG PREVIOUS TRACING : 04/09/2016 17.04 Since previous tracing, no significant change noted. DOCTOR: Emma Quintanilla Interpretating Date/Time 04/10/2016 17:03:15
[2016-04-10] MEDS: TAMSULOSIN HCL 0.4 MG CAP PO SCH (20:20)
[2016-04-10] MEDS: SODIUM CHLORIDE 0.9% FLUSH 5 ML FLUSH IVF SCH (20:20)
[2016-04-10] MEDS ORDERED: AMIODARONE 150 MG/D5W 97 ML BOLUS 10 MINUTES IV ONE ×2 (20:45)
[2016-04-10] MEDS ORDERED: AMIODARONE IV SCH (20:45)
[2016-04-10] MEDS ORDERED: D5W IV SCH (20:45)
[2016-04-10] MEDS ORDERED: AMIODARONE INJ 450 MG in DEXTROSE 5% IN WATE(EXCEL) INJ 241 ML IV SCH ×2 (20:53)
[2016-04-10] MEDS ORDERED: VANCOMYCIN INJ 1,000 MG in SODIUM CHLOR 0.9% 250 ML INJ 250 ML IV SCH (21:00)
[2016-04-11] VITALS (19 sets, daily range): BP systolic 105–144; BP diastolic 54–78; PULSE 63–90; RESP 18–20; TEMP 98–98.6; O2SAT 95–98
[2016-04-11] MEDS: ceFAZolin 2 GM PREMIX 50 ML IV SCH (04:16)
--- NOTE | 2016-04-11 07:29 | MR ---
cc: ЮЛИЯ ALFARO DATE: 04/10/2016 INDICATIONS FOR PROCEDURE: Sick sinus syndrome with severe symptomatic bradycardia. PROCEDURE PREFORMED: Placement of [employer] Dual chamber MRI compatible pacemaker. ACCESS SITE: Left subclavian vein, using ultrasound guidance. EQUIPMENT USED: Device: [employer] Assurity MRI compatible model [id number], dual chamber pacemaker. Serial number [id number]. Right atrial lead: [employer] model [id number]-46 cm, screw in atrial lead, serial number [id number]. Right ventricle lead: [employer] model [id number]-71 cm, screw in ventricular lead. Serial number [id number]. LEAD TESTING: Right atrial lead: P-wave 1.5 millivolts, lead impedance 480 ohms, pacing threshold 0.75 volts at 0.5 milliseconds. Right ventricular lead: R-wave 6.1 millivolts, lead impendence 640 ohms, pacing threshold 0.5 volts at 0.5 milliseconds. Pacing at 10 volts, no diaphragmatic stimulation. PARAMETERS Mode DDD, lower rate 60, upper rate 120. DIAGNOSIS: Successful placement of [employer] Krishna dual chamber MRI compatible pacemaker. DISPOSITION: Mr. Zapata will be monitored on telemetry after this procedure. He will be discharged home tomorrow if stable. He will follow up with Dr. Martinez, his primary hand driller, in his office after discharge. MD NEERU Eli/yonatan /10:11 AM /7:15 AM BIA
[2016-04-11] MEDS: AMOXICILLIN/CLAVULANATE K 500 MG TAB PO SCH (08:52)
[2016-04-11] MEDS: LOSARTAN 50 MG TAB PO SCH (08:52)
[2016-04-11] MEDS: HEPARIN SODIUM - SQ 10,000 UNITS/ML VIAL SQ SCH (08:53)
[2016-04-11] MEDS: NIFEdipine 30 MG SUSTAINED RELEASE TAB PO SCH (08:53)
[2016-04-11] MEDS: ASCORBIC ACID 500 MG TAB PO SCH (08:53)
[2016-04-11] MEDS: SODIUM CHLORIDE 0.9% FLUSH 5 ML FLUSH IVF SCH (08:53)
--- NOTE | 2016-04-11 11:13 | HHI.PR ---
Subjective Interval History awake alert and oriented post procedure paroxysmal A fib on Amio drip currently in sinus rhythm no issues overnight no chest pain no sob Anxious to go home at bed side Vitals/Results Intake & Output 04/10/16 04/10/16 04/11/16 15:00 23:00 07:00 Intake Total 980 ml Output Total 600 ml 1000 ml Balance -600 ml -20 ml Intake Oral 480 ml IV Total 500 ml Output Urine Total 600 ml 1000 ml # Bowel Movements 1 Vital Signs Vital Signs Date Time Temp Pulse Resp B/P Pulse Ox O2 Delivery O2 Flow Rate FiO2 04/11/16 10:30 04/11/16 10:01 75 04/11/16 09:47 68 04/11/16 09:47 98.0 68 18 144/66 98 04/11/16 07:42 63 04/11/16 06:00 71 04/11/16 05:00 70 04/11/16 04:00 98.2 68 18 130/66 97 04/11/16 04:00 68 04/11/16 03:00 67 04/11/16 02:00 71 04/11/16 01:00 79 04/11/16 00:00 67 04/11/16 00:00 98.6 67 20 105/54 95 04/10/16 23:00 75 04/10/16 22:00 82 04/10/16 21:00 77 04/10/16 20:00 98.8 73 20 145/67 96 04/10/16 20:00 73 04/10/16 17:45 76 18 128/69 96 04/10/16 17:00 74 04/10/16 16:00 80 04/10/16 15:00 88 04/10/16 15:00 99.0 79 20 125/60 94 04/10/16 14:00 82 04/10/16 13:00 84 04/10/16 12:35 122 20 145/85 96 04/10/16 12:00 70 04/10/16 11:55 95 21 04/10/16 11:35 71 18 154/84 95 04/10/16 11:30 98.4 71 18 154/84 94 CBC/BMP: 04/10/16 0455 04/10/16 0455 Physical Exam General General Appearance: Well Developed, Well Nourished, No Acute Distress, Comfortable Eyes Eye Exam: Pupils Equal, Pupils Reactive Throat Throat Exam: Oral Mucosa [place] & Moist Neck Neck Exam: Neck Supple, Trachea Midline Pulmonary Resp Exam: Clear Bilaterally, Breath Sounds Equal, No Distress Cardiology CV Exam: Regular, Normal Sinus Rhythm CV Remarks dressing on left upper chest Gastrointestinal/Abdomen GI Exam: Soft, Non-Tender, Bowel Sounds Present Genitourinary Exam: Clear Urine Remarks hopkins catheter Musculoskeletal MS Exam: Joints Intact, Good Strength MS Remarks left foot wound Integumentary Skin Exam: Clear, Warm, Dry, Intact Extremeties Extremities Exam: No Edema Neurologic Neuro Exam: Alert, Awake, Oriented, Speech Clear, Moving All Extremities Psychiatric Psych Exam: Appropriate Responses Assessment/Plan Assessment/Plan Assessment and Plan Assessment and Plan Problem List: (1) Syncope (2) Symptomatic bradycardia (3) Atrial fibrillation and flutter (4) Hx of prior ablation treatment (5) Neuropathy (6) HTN (hypertension) (7) Chronic ulcer of left foot Plan: Recent incision and drainage (8) HX AMPUTATION TOES RIGHT AND LEFT FOOT (9) Chronic indwelling Hopkins catheter (10) UTI (urinary tract infection) (11) Urinary retention Assessment and Plan 75-year-old male with history of atrial flutter, A. fib with multiple ablations. Patient admitted after having symptomatic bradycardia with subsequent syncopal episode after undergoing urological procedure. 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 Has a chronic ulcer to the left foot that is healing, undergoing wound care -Wound care done weekly per Dr. Wakefield, done on 04/08/2016 Orders given not to change dressing -Patient to wear ortho shoe at all times Hypertension, stable Continue home medication Urinary retention, status post Urolift procedure. Has chronic indwelling catheter since January, changed today. Currently been treated for UTI -Continue with Hopkins catheter Monitor urine output Continue with oral antibiotics Daily alcohol use -Counseled about alcohol use Monitor for withdrawal symptoms Home medications reviewed, initiated as indicated SCDs for DVT prophylaxis discussed with patient and at bedside anticipate discharge soon, if ok with cardiology and on po meds discussed with nursing staff Gina Cordova MD Apr 11, 2016 11:13
[2016-04-11] MEDS ORDERED: APIXABAN 5 MG TABLET PO SCH (11:15)
--- NOTE | 2016-04-11 16:45 | PD.CARD.PN ---
Objective Vital Signs / I&O Vital Signs Date Time Temp Pulse Resp B/P Pulse Ox O2 Delivery O2 Flow Rate FiO2 04/11/16 16:03 98.0 78 18 144/78 98 04/11/16 16:02 78 04/11/16 15:49 76 04/11/16 14:02 72 04/11/16 13:08 70 04/11/16 12:02 70 04/11/16 11:23 66 04/11/16 11:10 98 21 04/11/16 10:30 04/11/16 10:01 75 04/11/16 09:47 68 04/11/16 09:47 98.0 68 18 144/66 98 04/11/16 07:42 63 04/11/16 06:00 71 04/11/16 05:00 70 04/11/16 04:00 98.2 68 18 130/66 97 04/11/16 04:00 68 04/11/16 03:00 67 04/11/16 02:00 71 04/11/16 01:00 79 04/11/16 00:00 67 04/11/16 00:00 98.6 67 20 105/54 95 04/10/16 23:00 75 04/10/16 22:00 82 04/10/16 21:00 77 04/10/16 20:00 98.8 73 20 145/67 96 04/10/16 20:00 73 04/10/16 17:45 76 18 128/69 96 04/10/16 17:00 74 I/O 04/10/16 04/10/16 04/10/16 04/11/16 04/11/16 04/11/16 07:00 15:00 23:00 07:00 15:00 23:00 Intake Total 980 ml 17 ml Output Total 600 ml 1000 ml Balance -600 ml -20 ml 17 ml Intake Oral 480 ml IV Total 500 ml 17 ml Output Urine Total 600 ml 1000 ml # Bowel Movements 1 Assessment and Plan Discussed Condition With POD 1 PPM HAD WHAT APPEARS TO BE PMT LAST NITE ALSO HAD NS A FIB HE IS ASYMPTOMATIC OK TO DC PPM REPROGRAMMED THIS MORNING Gómez Mata DO Apr 11, 2016 16:45
[2016-05-05] MEDS ORDERED: TAMS0.4C4 PO (14:28)
== END 2016-04-11 18:00 | disposition home or self-care (01) | DRG 243 ==
LOC: NEPE 16:47 → NEDA 18:22 → HCIS 23:00
PROVIDERS: ADMIT Internal Medicine; ATTEND Internal Medicine
PROC: 02H63JZ Insertion of Pacemaker Lead into Right Atrium, Percutaneous Approach (ICD-10-PCS; 2016-04-10)
PROC: 02HK3JZ Insertion of Pacemaker Lead into Right Ventricle, Percutaneous Approach (ICD-10-PCS; 2016-04-10)
PROC: 0JH606Z Insertion of Pacemaker, Dual Chamber into Chest Subcutaneous Tissue and Fascia, Open Approach (ICD-10-PCS; principal; 2016-04-10 08:30)
PROC: 4B02XSZ Measurement of Cardiac Pacemaker, External Approach (ICD-10-PCS; 2016-04-11)
DX: I49.5 Sick sinus syndrome (principal); I48.92 Unspecified atrial flutter; R06.83 Snoring; N39.0 Urinary tract infection, site not specified; G62.9 Polyneuropathy, unspecified; L97.529 Non-pressure chronic ulcer of other part of left foot with unspecified severity; I48.0 Paroxysmal atrial fibrillation; I25.10 Atherosclerotic heart disease of native coronary artery without angina pectoris; I10 Essential (primary) hypertension; E78.5 Hyperlipidemia, unspecified; I44.0 Atrioventricular block, first degree; M19.90 Unspecified osteoarthritis, unspecified site; I45.10 Unspecified right bundle-branch block; Z86.14 Personal history of Methicillin resistant Staphylococcus aureus infection; Z87.891 Personal history of nicotine dependence; Z85.828 Personal history of other malignant neoplasm of skin; K44.9 Diaphragmatic hernia without obstruction or gangrene; Z87.442 Personal history of urinary calculi; Z86.19 Personal history of other infectious and parasitic diseases; Z88.1 Allergy status to other antibiotic agents; Z88.8 Allergy status to other drugs, medicaments and biological substances; Z89.422 Acquired absence of other left toe(s); Z89.421 Acquired absence of other right toe(s)
CPT/HCPCS: 33208; 71010; 80048; 82550; 83735; 84484; 85025; 85610; 85730; 93005; 99211; 99291; C1785; C1898; G0463; J0282; J0690; J1644; J3370; J7040; J7050; J7060; Q9967

== ENCOUNTER → 2016-09-14 | Outpatient (CLI) | payer MEDICARE, OTHER ==
[~2016-09-14] MED LIST changes: -AUGM500T7 PO; +TAMS0.4C4 PO; -TAMS5CAP PO; -[UNRECOGNIZED DRUG - CODE] PO
[2016-09-14 10:02] LABS: AUTOMATED NEUTROPHIL # 3.6 TH/MM3 (1.8-7.7); BASOPHIL % 0.4 % (0.0-2.0); EOSINOPHIL # 0.1 TH/MM3 (0-0.4); EOSINOPHIL % 1.1 % (0.0-4.0); HEMATOCRIT 48.9 % (39.0-51.0); HEMO FLAGS DIFF FINAL; LYMPH % 25.8 % (9.0-44.0); LYMPHOCYTE # 1.4 TH/MM3 (1.0-4.8); MEAN CELL VOLUME 93.8 FL (80.0-100.0); MEAN CORPUSCULAR HGB CONC 34.2 % (32.0-36.0); MONO % 8.8 % (0.0-8.0); NEUT % 63.9 % (16.0-70.0); PLATELET COUNT 163 TH/MM3 (150-450); RED BLOOD COUNT 5.21 MIL/MM3 (4.50-5.90); RED CELL DISTRIBUTION WIDTH 13.5 % (11.6-17.2); WHITE BLOOD COUNT 5.6 TH/MM3 (4.0-11.0)
[2016-09-14 12:47] LABS: BLOOD, URINE NEG (NEG); GLUCOSE,URINE NEG (NEG); KETONE, URINE NEG (NEG); NITRITE,URINE NEG (NEG); URINE COLOR YELLOW (YELLW/STRAW)
[2016-09-14 13:11] LABS: ANION GAP 9 MEQ/L (5-15); AST (GOT) 19 U/L (15-37); BICARBONATE 26.2 MEQ/L (21.0-32.0); BLOOD UREA NITROGEN 9 MG/DL (7-18); CHLORIDE 105 MEQ/L (98-107); GLOMERULAR FILTRATION RATE 82 ML/MIN (>89); POTASSIUM 3.9 MEQ/L (3.5-5.1); SODIUM (NA) 140 MEQ/L (136-145)
[2016-09-14 13:12] LABS: ALT (GPT) 23 U/L (12-78)
[2016-09-14 13:14] LABS: ALKALINE PHOSPHATASE 84 U/L (45-117); HDL CHOLESTEROL 57.7 MG/DL (40.0-60.0); LDL CHOLESTEROL 96 MG/DL (0-99); TOTAL BILIRUBIN ADULT 0.9 MG/DL (0.2-1.0)
[2016-09-14 17:03] LABS: HEMOGLOBIN A1a 0.8 %; HEMOGLOBIN A1b 1.8 %; HEMOGLOBIN Ao 85.7 %; HEMOGLOBIN P3 3.5 %
== END ==
LOC: OLAB 09:44
PROVIDERS: ATTEND Family Medicine
DX: E78.5 Hyperlipidemia, unspecified (principal); R73.9 Hyperglycemia, unspecified; Z12.5 Encounter for screening for malignant neoplasm of prostate
CPT/HCPCS: 36415; 80053; 80061; 81001; 83036; 84153; 85025

== ENCOUNTER → 2017-03-09 | Outpatient (CLI) | payer MEDICARE, OTHER ==
[2017-03-09 12:32] LABS: AUTOMATED NEUTROPHIL # 4.2 TH/MM3 (1.8-7.7); BASOPHIL % 0.4 % (0.0-2.0); EOSINOPHIL # 0.1 TH/MM3 (0-0.4); EOSINOPHIL % 1.1 % (0.0-4.0); HEMATOCRIT 47.8 % (39.0-51.0); HEMO FLAGS DIFF FINAL; HEMOGLOBIN 16.1 GM/DL (13.0-17.0); LYMPH % 20.2 % (9.0-44.0); LYMPHOCYTE # 1.2 TH/MM3 (1.0-4.8); MEAN CELL VOLUME 96.2 FL (80.0-100.0); MEAN CORPUSCULAR HEMOGLOBIN 32.4 PG (27.0-34.0); MEAN CORPUSCULAR HGB CONC 33.7 % (32.0-36.0); MEAN PLATELET VOLUME 8.2 FL (7.0-11.0); MONO % 9.2 % (0.0-8.0); MONOCYTE # 0.6 TH/MM3 (0-0.9); NEUT % 69.1 % (16.0-70.0); PLATELET COUNT 162 TH/MM3 (150-450); RED BLOOD COUNT 4.97 MIL/MM3 (4.50-5.90); RED CELL DISTRIBUTION WIDTH 13.7 % (11.6-17.2); WHITE BLOOD COUNT 6.1 TH/MM3 (4.0-11.0)
[2017-03-09 12:45] LABS: PROTHROMBIN TIME - PATIENT 10.4 SEC (9.8-11.6)
[2017-03-09 13:34] LABS: ALBUMIN 3.6 GM/DL (3.4-5.0); ALT (GPT) 26 U/L (12-78); ANION GAP 4 MEQ/L (5-15); AST (GOT) 19 U/L (15-37); BICARBONATE 31.3 MEQ/L (21.0-32.0); BLOOD UREA NITROGEN 10 MG/DL (7-18); CALCIUM 8.8 MG/DL (8.5-10.1); CHLORIDE 106 MEQ/L (98-107); CREATININE 0.75 MG/DL (0.60-1.30); GLOMERULAR FILTRATION RATE 102 ML/MIN (>89); GLUCOSE,FASTING 117 MG/DL (74-99); POTASSIUM 4.2 MEQ/L (3.5-5.1); SODIUM (NA) 141 MEQ/L (136-145)
[2017-03-09 13:37] LABS: ALKALINE PHOSPHATASE 90 U/L (45-117); TOTAL BILIRUBIN ADULT 0.7 MG/DL (0.2-1.0); TOTAL PROTEIN 7.2 GM/DL (6.4-8.2)
== END ==
LOC: CPRE 10:46
DX: Z01.810 Encounter for preprocedural cardiovascular examination (principal); Z01.811 Encounter for preprocedural respiratory examination; Z01.812 Encounter for preprocedural laboratory examination; L97.522 Non-pressure chronic ulcer of other part of left foot with fat layer exposed; M21.961 Unspecified acquired deformity of right lower leg; R94.31 Abnormal electrocardiogram [ECG] [EKG]; Z79.01 Long term (current) use of anticoagulants; G64 Other disorders of peripheral nervous system; R73.9 Hyperglycemia, unspecified
CPT/HCPCS: 36415; 71046; 80053; 85025; 85610; 93005

== ENCOUNTER → 2017-03-09 | Outpatient (CLI) | payer MEDICARE, OTHER ==
[2017-03-09 13:34] LABS: CHOLESTEROL 166 MG/DL (120-200); TRIGLYCERIDES 65 MG/DL (42-150)
[2017-03-09 13:59] LABS: CHOLESTEROL/ HDL RATIO 2.93 RATIO; HDL CHOLESTEROL 56.6 MG/DL (40.0-60.0); LDL CHOLESTEROL 96 MG/DL (0-99)
[2017-03-09 16:45] LABS: HEMOGLOBIN A1C 5.6 % (4.3-6.0); HEMOGLOBIN A1a 0.8 %; HEMOGLOBIN A1b 1.7 %; HEMOGLOBIN Ao 85.9 %; HEMOGLOBIN P3 3.4 %
== END ==
LOC: CLAB 10:52
DX: G64 Other disorders of peripheral nervous system (principal); R73.9 Hyperglycemia, unspecified
CPT/HCPCS: 80061; 82607; 83036

== ENCOUNTER → 2017-03-12 | Day surgery (SDC) | payer MEDICARE, OTHER ==
[~2017-03-12] VITALS: Ht 205.7 cm; Wt 123.6 kg
[~2017-03-12] MED LIST changes: -ASCO500C PO; +BUPIVACAINE HCL PF 0.5% 30 ML VIAL ONE; +CALC500T37 PO; -CALC500T42 PO; +CEPH-460 PO; +CHLORHEXIDINE GLUCONATE 2 % 1 PACK (2 CLOTHS) TOPICAL PRN; +DO NOT ADM ANY ANTICOAGULANT DRUGS PRN; +FLAXCAP PO; +IBUPROFEN 400 MG TAB PO PRN; +INSULIN HUMAN REGULAR 1,000 UNITS/10 ML VIAL SQ PRN; +LACTATED RINGER'S 1000 ML IV PRN; +LIDOCAINE HCL 1% PF 5 ML SYRINGE OTHER ONE; +METOPROLOL TARTRATE 25 MG TAB PO PRN; +MORPHINE SULFATE 4 MG/ML INJ IV PUSH PRN; -MULT-135 PO; +MULT-65 PO; +NALOXONE HCL 0.4 MG/ML AMP IV PUSH PRN; -NIFE30TA8 PO; +ONDANSETRON HCL 4 MG/2 ML VIAL IV PUSH ONE; +PERC5TAB12 PO; +PHENYLEPH/NS 1000 MCG/10 ML SYR IV ONE; +POVIDONE IODINE 5% (ANTISEPSIS KIT) 4 APPLICATIONS EACH NARE PRN; +PROPOFOL 200 MG/20 ML AMP IV ONE; +Post-op Orders (for Pharmacy) XX ONE; -SAW160TA PO; +SAW450CA2 PO; +SODIUM CHLORID 0.9% 500 ML IV PRN; +SODIUM CHLORIDE 0.9% FLUSH 10 ML FLUSH IV FLUSH PRN; +SODIUM CHLORIDE 0.9% FLUSH 10 ML FLUSH IV FLUSH SCH; +VITA500C18 PO; +ceFAZolin 2 GM PREMIX 50 ML IV SCH; +oxyCODONE/ACETAMINOPHEN 10 MG/325 MG TAB PO PRN; +oxyCODONE/ACETAMINOPHEN 5 MG/325 MG TAB PO PRN
--- NOTE | 2017-03-12 10:13 | PD.OP ---
Operative Report Date of Surgery: Mar 12, 2017 Preoperative Diagnosis: (1) Charcot's arthropathy Right plantar arch Postoperative Diagnosis: (1) Charcot's arthropathy Right plantar arch Procedure: Excision of prominent first metatarsal cuneiform joint spurring plantar right arch Anesthesia: Gen. inhalation Surgeon: Isidro Wakefield DPM Solution Manager(s): Alexandre WATTS Operation and Findings: Patient was brought to the operating room placed on the operating table in the supine position. A pneumatic ankle cuff was placed around the right ankle after adequate web roll padding. Patient was given general inhalation anesthesia and the right foot was prepped and draped in the usual sterile manner. After the appropriate timeout was performed attention was directed to the plantar arch of the right foot. Patient has idiopathic peripheral neuropathy and had a collapse of the first metatarsal cuneiform joint that has resulted in a chronic ulceration. The ulceration is healed at this time but to prevent reoccurrence patient has decided to proceed with an exostectomy of the plantar arch right foot. At this time a 7 cm curvilinear incision was made over the base of the first metatarsal cuneiform joint plantarly. The incision was deepened using sharp and blunt dissection taking care to tie off any superficial bleeding vessels and retracting all vital structures. The incision was deepened to the level of the exostosis of the plantar first met and cuneiform. Using an oscillating saw and a rotary bur the plantar prominence was resected. Bone was sent to pathology. Area was flushed with copious amounts of sterile saline. Subcutaneous tissue is closed with 2-0 Vicryl and skin edges were closed with 3-0 nylon. In area was anesthetized with 10 cc of 0.5% Marcaine. The wound was dressed with Adaptic 4 x 4's and Dez. Should be noted that the case was performed under a pneumatic ankle tourniquet set at 250 mmHg for 38 minutes. After deflation of the pneumatic ankle cuff vascular status returned to the right foot. Sponge and instrument counts were noted to be correct. Bone was sent to pathology for gross and micro-. Patient tolerated the procedures and anesthesia well and left the OR to PACU in apparent satisfactory condition with all vital signs stable. Isidro Wakefield DPM Mar 12, 2017 10:13
--- NOTE | 2017-03-12 11:16 | RADRPT ---
EXAM DATE/TIME: 03/12/2017 10:33 [facility] COMPARISON: FOOT RIGHT COMPLETE ([id number]), August 14, 2014, 15:28. INDICATIONS : Post-op bone spur removal. MEDICAL HISTORY : None. SURGICAL HISTORY : Great toe removal right foot. ENCOUNTER: Initial ACUITY: 1 day PAIN SCORE: 0/10 LOCATION: Right Foot. FINDINGS: Status post amputation of the distal first and second metatarsals. Degenerative changes are seen in the tarsals. CONCLUSION: Postop changes as above.. Kenneth Singh MD FACR on March 12, 2017 at 11:07 Board Certified Radiologist. This report was verified electronically.
[2017-03-12 11:33] VITALS: BP 151/75; PULSE 60; RESP 16; TEMP 96.8; O2SAT 97
== END | disposition home or self-care (01) ==
LOC: HSDC 06:56
PROVIDERS: ATTEND Podiatrist Primary Podiatric Medicine
DX: M14.671 Charcot's joint, right ankle and foot (principal); L97.522 Non-pressure chronic ulcer of other part of left foot with fat layer exposed; G62.9 Polyneuropathy, unspecified; I48.91 Unspecified atrial fibrillation; I10 Essential (primary) hypertension; Z87.440 Personal history of urinary (tract) infections
CPT/HCPCS: 00400; 28122; 73630; 88304; 88311; J0690; J2370; J2405; J3010; J7120; 88307